=== PATIENT | male | born 1990 | race Two or more races ===

== ENCOUNTER 2024-09-14 05:46 | Day surgery (SDC) | payer OTHER ==
[2024-09-14] MEDS ORDERED: BUPIVACAINE HCL 30 ML VIAL IV ONE (12:30)
[2024-09-14] MEDS ORDERED: LIDOCAINE HCL 1% 20 ML VIAL IJ ONE (12:30)
[2024-09-14] MEDS ORDERED: TRANEXAMIC ACID 100MG/1ML (1000MG) AMPUL IV ONE (12:30)
[2024-09-14] MEDS ORDERED: EPINEPHRINE HCL/PF 1 MG/ML AMPUL IR ONE (12:30)
[2024-09-14] MEDS ORDERED: CEFAZOLIN SODIUM 1,000 MG VIAL IV ONE (12:30)
[2024-09-14] MEDS ORDERED: BUPIVACAINE HCL/PF 0.25% 30ML VIAL InF ONE (12:30)
[2024-09-14] MEDS ORDERED: ENOXAPARIN SODIUM 40 MG/0.4 ML SYRINGE SUBCUTANEO ONE (12:30)
== END 2024-09-14 22:06 | disposition home or self-care (01) ==
LOC: CIR.AMB 05:46 → EDSEX 14:45 → CIR.AMB 22:05
PROVIDERS: ATTEND Specialist
DX: L98.7 Excessive and redundant skin and subcutaneous tissue (principal); E66.09 Other obesity due to excess calories